=== PATIENT | female | born 1980 | race African-American/Black ===

== ENCOUNTER 2017-09-22 15:09 | Emergency (ER) | payer OTHER ==
[~2017-09-22] VITALS: Ht 175.3 cm; Wt 95.3 kg
== END 2017-09-22 20:23 | disposition home or self-care (01) ==
LOC: ER 15:09
DX: R42 Dizziness and giddiness (principal)

== ENCOUNTER 2017-12-14 19:22 | Emergency (ER) | payer OTHER ==
[~2017-12-14] VITALS: Ht 152.4 cm; Wt 95.3 kg
[2017-12-14] MEDS ORDERED: VITAMIN B122500 MC1 (19:59)
== END 2017-12-15 00:11 | disposition home or self-care (01) ==
LOC: ER 19:22
DX: K29.60 Other gastritis without bleeding (principal)

== ENCOUNTER 2018-03-08 20:27 | Emergency (ER) | payer OTHER ==
[~2018-03-08] VITALS: Ht 175.3 cm; Wt 95.3 kg
[~2018-03-08 20:27] MED LIST: VITAMIN B122500 MC1
[2018-03-08] MEDS ORDERED: PROTONIX20 MG (21:12)
== END 2018-03-09 13:25 | disposition designated cancer center or children's hospital (05) ==
LOC: ER 20:27
DX: K56.609 Unspecified intestinal obstruction, unspecified as to partial versus complete obstruction (principal); R10.31 Right lower quadrant pain